=== PATIENT | female | born 1950 | race Caucasian/White ===

== ENCOUNTER → 2016-11-16 | Outpatient (CLI) | payer BC, OTHER ==
[~2016-11-16] MED LIST: RISE150T PO; ROSU5TAB PO; ZYRUNK PO
--- NOTE | 2016-11-16 16:28 | DIAGNOSTIC IMAGING REPORT ---
CHEST 2 VIEWS ROUTINE CLINICAL HISTORY: Cough. COMPARISON STUDY: Chest radiograph August 03, 2010. FINDINGS: Paraspinal surgical clips are again noted. There is no pneumothorax or pleural effusion. Linear left basilar opacity is suggestive of atelectasis. There is no evidence of pulmonary edema. Cardiomediastinal silhouette is normal. The appearance of the chest is unchanged. IMPRESSION: No acute cardiopulmonary findings. Electronically signed by: Marquis Santiago M.D. 11/16/2016 4:26 PM Dictated Date/Time: 11/16/2016 4:25 PM
== END | disposition home or self-care (01) ==
LOC: C.RAD 15:57
PROVIDERS: ATTEND Family Medicine
DX: R09.89 Other specified symptoms and signs involving the circulatory and respiratory systems (principal); R05 Cough

== ENCOUNTER → 2016-12-09 | Outpatient (CLI) | payer BC, OTHER | END | disposition home or self-care (01) | LOC: C.PAPS 14:48 | PROVIDERS: ATTEND Obstetrics & Gynecology | DX: Z01.419 Encounter for gynecological examination (general) (routine) without abnormal findings (principal) ==

== ENCOUNTER → 2016-12-09 | Outpatient (CLI) | payer BC, OTHER ==
[2016-12-09 14:33] LABS: CHOLESTEROL/HDL RATIO 3.7
== END | disposition home or self-care (01) ==
LOC: C.LAB 10:39
DX: E55.9 Vitamin D deficiency, unspecified (principal); E78.5 Hyperlipidemia, unspecified

== ENCOUNTER → 2016-12-24 | Outpatient (CLI) | payer BC, OTHER ==
--- NOTE | 2016-12-24 17:14 | MAMMOGRAPHY REPORT ---
BILATERAL DIGITAL SCREENING MAMMOGRAM WITH CAD: 12/24/2016 TECHNIQUE: Current study was also evaluated with a Computer Aided Detection (CAD) system. Bilateral CC and MLO views were obtained. COMPARISON: Comparison is made to exams dated: 12/18/2015 mammogram, 12/18/2015 ultrasound, 12/05/2015 mammogram, 11/28/2014 mammogram, 11/25/2013 mammogram, and 11/24/2012 mammogram - [facility] nter. BREAST COMPOSITION: The tissue of both breasts is heterogeneously dense, which may obscure small mas ses. FINDINGS: No suspicious masses, calcifications, or areas of architectural distortion are noted in ei ther breast. There has been no significant interval change compared to prior exams. Scattered bilate ral benign-appearing calcifications are not significantly changed. Round benign-appearing mass in th e right 12:00 breast is again noted, and was shown to represent a benign cyst on the prior 2015 ultra sound exam. IMPRESSION: ACR BI-RADS CATEGORY 2: BENIGN There is no mammographic evidence of malignancy. A 1 year screening mammogram is recommended. The pa tient will receive written notification of the results. Approximately 10% of breast cancers are not detected with mammography. A negative mammographic report should not delay biopsy if a clinically suggestive mass is present. Fely Alvarez M.D. /:12/24/2016 15:27:29 [employer] Operator: Magdalena LY(Jasmin)(M), [facility] letter sent: Normal 1/2 BI-RADS Code: ACR BI-RADS Category 2: Benign
== END | disposition home or self-care (01) ==
LOC: C.MAMM 11:16
PROVIDERS: ATTEND Obstetrics & Gynecology
DX: Z12.31 Encounter for screening mammogram for malignant neoplasm of breast (principal); R92.8 Other abnormal and inconclusive findings on diagnostic imaging of breast

== ENCOUNTER → 2017-01-19 | Outpatient (CLI) | payer BC, OTHER | END | disposition home or self-care (01) | LOC: C.MAMM 08:55 | DX: M85.851 Other specified disorders of bone density and structure, right thigh (principal); M85.852 Other specified disorders of bone density and structure, left thigh ==

== ENCOUNTER → 2017-04-08 | Outpatient (CLI) | payer BC, OTHER | END | disposition home or self-care (01) | LOC: C.LABSPEC 15:55 | PROVIDERS: ATTEND Obstetrics & Gynecology | DX: L29.8 Other pruritus (principal) ==

== ENCOUNTER → 2017-04-27 | Outpatient (CLI) | payer BC, OTHER ==
--- NOTE | 2017-04-27 13:09 | DIAGNOSTIC IMAGING REPORT ---
ULTRASOUND KIDNEYS AND BLADDER CLINICAL HISTORY: Right flank pain. COMPARISON STUDY: KUB dated 04/10/2010. TECHNIQUE: Real-time, grayscale, and color flow sonography of the kidneys and bladder is performed. Images are reviewed in the transverse and longitudinal planes. FINDINGS: Kidneys: The kidneys are normal in size and echotexture. The right kidney measures 10.2 x 4.6 x 4.5 cm and the left kidney measures 12.0 x 5.0 x 4.7 cm. There is no hydronephrosis. No shadowing renal calculi are identified. There is no sonographic evidence of contour deforming renal mass lesion. No perinephric fluid is identified. Bladder: The bladder is largely decompressed and grossly normal in appearance. Ureteral jets were not seen. IMPRESSION: 1. The kidneys are normal in size and without hydronephrosis. 2. The largely decompressed bladder is grossly unremarkable. Electronically signed by: Mike Rosario M.D. 04/27/2017 1:07 PM Dictated Date/Time: 04/27/2017 1:05 PM
[2017-04-27 17:36] LABS: BASO % 0.2 %; BASO ABS # 0.01 K/uL (0-0.2); COMPLETE YES; EOS % 4.4 %; HEMATOCRIT 40.2 % (37-47); IG% 0.2 %; LYMPH % 29.6 %; LYMPH ABS # 1.55 K/uL (1.2-3.4); MEAN CELL VOLUME 91.2 fL (80-100); MEAN CORPUSCULAR HEMOGLOBIN 28.8 pg (25-34); MEAN CORPUSCULAR HGB CONC 31.6 g/dl (32-36); MEAN PLATELET VOLUME 10.4 fL (7.4-10.4); MONO % 6.5 %; NEUT % 59.1 %; PLATELET COUNT 218 K/uL (130-400); RED BLOOD COUNT 4.41 M/uL (4.2-5.4); WHITE BLOOD COUNT 5.24 K/uL (4.8-10.8)
[2017-04-27 17:46] LABS: BLOOD UREA NITROGEN 17 mg/dl (7-18); CALCIUM 9.4 mg/dl (8.5-10.1); CARBON DIOXIDE 29 mmol/L (21-32); CHLORIDE 108 mmol/L (98-107); CREATININE 0.73 mg/dl (0.60-1.20); GLUCOSE 108 mg/dl (70-99); POTASSIUM 4.2 mmol/L (3.5-5.1); SODIUM 141 mmol/L (136-145)
[2017-04-27 17:52] LABS: URINE APPEARANCE CLEAR (CLEAR); URINE BILIRUBIN NEG (NEG); URINE COLOR YELLOW; URINE NITRITE NEG (NEG); URINE PH 6.5 (4.5-7.5); URINE SPECIFIC GRAVITY 1.022 (1.000-1.030); UROBILINOGEN NEG (NEG)
[2017-04-27 17:56] LABS: REVIEW REQ? NO
[2017-04-27 17:57] LABS: MANUAL MICROSCOPIC REQUIRED? NO
== END | disposition home or self-care (01) ==
LOC: C.ULTRBC 12:13
DX: R10.9 Unspecified abdominal pain (principal); Z87.442 Personal history of urinary calculi

== ENCOUNTER → 2017-06-04 | Outpatient (CLI) | payer BC, OTHER ==
[2017-06-04 09:48] LABS: CHOLESTEROL/HDL RATIO 2.6
[2017-06-04 09:57] LABS: ESTIMATED AVERAGE GLUCOSE 117 mg/dl; HA1C FLAG Normal (Normal)
== END | disposition home or self-care (01) ==
LOC: C.LAB 07:16
DX: E78.5 Hyperlipidemia, unspecified (principal)

== ENCOUNTER 2019-12-27 14:53 | Inpatient (IN) ==
[2019-12-27] MEDS ORDERED: SODIUM CHLORIDE 0.9% 1000ML 1,000 ML IV ONE (15:31)
[2019-12-27] MEDS ORDERED: ONDANSETRON INJ 2 MG/ML 2 ML VIAL IV STA ×2 (15:31→16:45)
[2019-12-27] MEDS ORDERED: HYDROmorphone INJ 0.5 MG/0.5 ML SYR IV STA ×2 (15:31→17:21)
[2019-12-27 15:42] LABS: Basophils # (auto) 0.02 K/uL (0-0.2); Basophils % (auto) 0.4 %; Eosinophils # (auto) 0.17 K/uL (0-0.5); Hematocrit (blood only) 38.3 % (37-47); Hemoglobin 12.5 g/dL (12.0-16.0); Immature Granulocytes # (auto) 0.01 K/uL (0.00-0.02); Immature Granulocytes % (auto) 0.2 %; Lymphocytes # (auto) 1.79 K/uL (1.2-3.4); Lymphocytes % (auto) 31.4 %; Mean Corpuscular Hgb Conc 32.6 g/dL (32-36); Mean Corpuscular Volume 91.8 fL (80-100); Mean Platelet Volume 10.1 fL (7.4-10.4); Monocytes # (auto) 0.44 K/uL (0.11-0.59); Monocytes % (auto) 7.7 %; Neutrophils # (auto) 3.27 K/uL (1.4-6.5); Neutrophils % (auto) 57.3 %; Platelet Count 223 K/uL (130-400); RDW Coefficient of Variation 13.8 % (11.5-14.5); RDW Standard Deviation 45.9 fL (36.4-46.3); Red Blood Count 4.17 M/uL (4.2-5.4)
[2019-12-27 16:00] LABS: Albumin Level 3.8 gm/dl (3.4-5.0); BUN Creatinine Ratio 17.5 (10-20); Bilirubin,Total 0.8 mg/dl (0.2-1); Calcium 9.1 mg/dl (8.5-10.1); Creatinine Clr Calc Pharmacy 41.9 ml/min; Est GFR (African American) 52.6; Est GFR (Non-African American) 45.4; Globulin 3.9 gm/dl (2.5-4.0); Potassium 3.8 mmol/L (3.5-5.1); Total Protein 7.7 gm/dl (6.4-8.2)
--- NOTE | 2019-12-27 16:44 | Ultrasound Report ---
US renal/blad retro comp HISTORY: 69 years-old Female L distal ureteral calculus left ureteral calculus COMPARISON: CT abdomen and pelvis 12/26/2019 TECHNIQUE: Multiple real-time sonographic images of the kidneys and urinary bladder were obtained ass essing grayscale appearance and color flow FINDINGS: The right kidney measures 10.8 x 4.3 x 3.6 cm. Nonobstructing calculi of the inferior pole right kidn ey redemonstrated measuring up to approximately 4 mm. No right-sided hydronephrosis. Moderate left-sided hydroureteronephrosis redemonstrated. The previously noted nonobstructing calculu s of the inferior pole left kidney is not definitively seen. The left kidney measures 12.3 x 6.1 x 5. 1 cm. Right ureteral jet is noted. Left ureteral jet is not identified suggestive of ongoing obstruction. IMPRESSION: 1. Persistent moderate left-sided hydroureteronephrosis with absence of the left ureteral jet suggest s ongoing obstruction. 2. Bilateral nephrolithiasis is better appreciated on comparison CT. ACT 112: Negative or not required by law. The above report was generated using voice recognition software. It may contain grammatical, syntax o r spelling errors. Electronically signed by: Edson Pete M.D. 12/27/2019 4:43 PM
[2019-12-27] MEDS ORDERED: MoRPHine SULFATE 4 MG/ML 1 ML CARP\\VIAL IV STA (16:45)
--- NOTE | 2019-12-27 16:54 | XRay Report ---
KUB HISTORY: Follow up study in a patient with history of renal calculi L distal ureteral calculus COMPARISON: Renal ultrasound of same day, CT abdomen and pelvis 12/26/2019 FINDINGS: The bowel gas pattern is non-obstructive. Mild to moderate fecal retention. There is no org anomegaly. The renal shadows are obscured by bowel gas. The previously noted bilateral nephrolithias is are not definitively seen. 5 mm radiodensity of the left hemipelvis is noted with multiple additio nal probable phleboliths. No pneumoperitoneum or pneumatosis. No fracture. IMPRESSION: 1. 5 mm radiodensity of the left hemipelvis may correlate with the previously described distal ureter al calculus and is suboptimally evaluated secondary to overlying bowel gas. 2. Multiple pelvic basin calcifications suggestive of probable phleboliths. ACT 112: Negative or not required by law. The above report was generated using voice recognition software. It may contain grammatical, syntax o r spelling errors. Electronically signed by: Edson Pete M.D. 12/27/2019 4:53 PM
--- NOTE | 2019-12-27 17:10 | Emergency Department Note ---
History of Present Illness General Chief complaint: Kidney Stone Stated complaint: KIDNEY STONE,HERE LAST NIGHT,CAN'T URINATE Time Seen by Provider: 12/27/19 15:26 History of Present Illness Maximum Pain Intensity: 10 69-year-old female who presents to the emergency department with complaint of uncontrollable left flank pain. The patient was here yesterday and diagnosed with a 5 mm left UVJ stone. The patient reports that she had decent pain control when she got home, but awoke this morning with pain. She tried to take her [place] tablets without any relief, and also had some vomiting. She has also been unable to remain hydrated this morning. She reports nausea and vomiting, rating her discomfort a 10 out of 10. Home Medications Home Medications Medication Instructions Recorded Confirmed Type rosuvastatin [Crestor] 20 mg PO QPM 11/26/18 12/27/19 History cholecalciferol (vitamin D3) 25 mcg PO DAILY 12/26/19 12/27/19 History hydrocodone-acetaminophen [[place]] 1 tab PO Q6H PRN #10 tab 12/27/19 12/27/19 Rx ondansetron HCl [Zofran] 4 mg PO Q8H PRN #10 tab 12/27/19 12/27/19 Rx tamsulosin [Flomax] 0.4 mg PO DAILY #10 cap 12/27/19 12/27/19 Rx Allergies Allergy/AdvReac Type Severity Reaction Status Date / Time Sulfa (Sulfonamide Allergy Hives Unverified 12/27/19 16:15 Antibiotics) Past Med/Surg History Medical History History of kidney stones Hyperlipidemia Seasonal allergies Spasmodic dysphonia REGULAR INJECTIONS FOR, LAST INJECTION: SEPTEMBER 2018 Surgical History History of appendectomy History of arthroscopy of left knee History of bunionectomy LEFT History of colonoscopy History of tumor IN BACK/BENIGN History of wisdom tooth extraction Social History Preferred Language: Polish Communication Ability: Effective Administrative Law Judge Required: No Beliefs That Will Affect Care: None Current Living Situation: Spouse Other Information That Helps Us Care for You: No Feels Safe at Home: Yes Safety Concerns: Feels Safe At This Time Smoking Status: Never smoker Tobacco Type: cigarettes ; Hx Alcohol Use: Yes Alcohol type: wine and hard liquor Hx Substance Use: No Review of Systems 10 system review was performed and was negative except for pertinent positives and negatives as indicated in history of present illness Physical Exam Vital Signs Vital Signs - 24 hr 12/27/19 14:54 12/27/19 15:40 12/27/19 15:57 Temperature 36.7 C Temperature Source Oral Pulse Rate 96 H 69 79 Pulse Rate from SpO2 Sensor 74 79 Respiratory Rate 18 12 18 Respiratory Effort / Characteristics Non-Labored Respiratory Depth Normal Blood Pressure 182/105 H 139/76 Blood Pressure Mean 130 110 Pulse Oximetry 95 96 97 Oxygen Delivery Method Room Air Room Air Room Air Oxygen Flow Rate Sepsis Recent Fever Within 48 Hours No Sepsis New/Unexplained Change in Mental Status No Sepsis Action Taken by Nursing No Action Required 12/27/19 16:00 12/27/19 16:40 12/27/19 16:47 Temperature Temperature Source Pulse Rate 79 87 84 Pulse Rate from SpO2 Sensor 79 87 88 Respiratory Rate 12 23 14 Respiratory Effort / Characteristics Respiratory Depth Blood Pressure 154/89 H Blood Pressure Mean 113 Pulse Oximetry 96 95 94 Oxygen Delivery Method Room Air Room Air Room Air Oxygen Flow Rate Sepsis Recent Fever Within 48 Hours Sepsis New/Unexplained Change in Mental Status Sepsis Action Taken by Nursing 12/27/19 17:00 12/27/19 17:25 12/27/19 17:27 Temperature Temperature Source Pulse Rate 84 84 93 H Pulse Rate from SpO2 Sensor 83 85 92 H Respiratory Rate 20 22 17 Respiratory Effort / Characteristics Respiratory Depth Blood Pressure 173/88 H 164/97 H Blood Pressure Mean 117 112 Pulse Oximetry 93 94 89 L Oxygen Delivery Method Room Air Room Air Room Air Oxygen Flow Rate Sepsis Recent Fever Within 48 Hours Sepsis New/Unexplained Change in Mental Status Sepsis Action Taken by Nursing 12/27/19 17:30 Temperature Temperature Source Pulse Rate 82 Pulse Rate from SpO2 Sensor 84 Respiratory Rate 20 Respiratory Effort / Characteristics Respiratory Depth Blood Pressure 174/99 H Blood Pressure Mean 112 Pulse Oximetry 82 L Oxygen Delivery Method Nasal Cannula Oxygen Flow Rate 2 Sepsis Recent Fever Within 48 Hours Sepsis New/Unexplained Change in Mental Status Sepsis Action Taken by Nursing CONSTITUTIONAL: Healthy and well nourished. Patient appears in severe discomfort and is vomiting. HEENT: Normocephalic, atraumatic. No subconjunctival hemorrhage or scleral icterus. RESPIRATORY: Clear to auscultation bilaterally with no wheezing, crackles, rhonchi or stridor. CARDIOVASCULAR: Regular rate and rhythm with no murmurs, rubs or gallops. GASTROINTESTINAL: Bowel sounds present in all quadrants. Abdomen is soft and nontender to palpation without rigidity, guarding or rebound. Negative CVA tenderness. MUSCULOSKELETAL: Full range of motion of all joints without discomfort. INTEGUMENTARY: No rash or other significant dermatologic conditions noted. HEMATOLOGIC: No ecchymosis or petechiae. PSYCHIATRIC: Positive affect. NEUROLOGIC: No focal neurologic deficits noted. Course Course Patient history and physical exam were performed. Nurse's notes were reviewed. Vital signs were reviewed, showing an elevated blood pressure 182/105. The patient is currently afebrile and not tachycardic. IV access was immediately established, and labs were drawn. The patient was hydrated with a liter normal saline, and was initially administered IV Dilaudid and Zofran. Labs were reviewed to show no leukocytosis, left shift or bandemia. Creatinine has elevated to 1.23, otherwise remaining laboratory studies were normal. Urinalysis shows 2+ hematuria without convincing evidence for infection. The patient did require additional IV morphine and Zofran because of no change in her pain or nausea. Renal ultrasound shows a persistent moderate left-sided hydroureteronephrosis with absence of the left ureteral jet, suggesting ureteral obstruction. A KUB x-ray shows a 5 mm radiodensity in the left hemipelvis. No other obstructive findings or free air noted. After the patient returned from imaging studies, she still continued to complain of persistent pain and nausea, and was therefore administered an additional dose of IV Dilaudid. The case was further discussed with Dr. Martinez, ED attending physician, who independently evaluated the patient and recommended consulting the hospitalist service. The case was further discussed with Dr. Schneider, [facility] hospitalist for further management. Please see his dictation for further treatment and final disposition. Administered Medications Hydromorphone HCl (Dilaudid) 0.5 mg IV Q4H PRN PRN Reason: Pain Stop: 01/10/20 19:25 Last Admin: 12/28/19 07:34 Dose: 0.5 mg Documented by: [id number] Promethazine HCl 12.5 mg/ (Sodium Chloride) 50.5 mls @ 202 mls/hr IV Q6H PRN PRN Reason: Nausea And Vomiting Stop: 01/26/20 19:25 Last Infusion: 12/27/19 21:31 Dose: 0 mls/hr Documented by: [id number] Admin: 12/27/19 20:33 Dose: 202 mls/hr Documented by: [id number] Rosuvastatin Calcium (Crestor) 20 mg PO QPM CANDIDO Stop: 01/26/20 20:59 Last Admin: 12/27/19 21:33 Dose: Not Given Documented by: [id number] Tamsulosin HCl (Flomax) 0.4 mg PO HS CANDIDO Stop: 01/26/20 20:59 Last Admin: 12/27/19 21:33 Dose: Not Given Documented by: [id number] Vitamin D (Vitamin D3) 1,000 units PO DAILY CANDIDO Stop: 01/27/20 08:59 Last Admin: 12/28/19 07:35 Dose: 1,000 units Documented by: [id number] Discontinued Medications Hydromorphone HCl (Dilaudid) 0.5 mg IV NOW STA Stop: 12/27/19 15:32 Last Admin: 12/27/19 15:40 Dose: 0.5 mg Documented by: [id number] Hydromorphone HCl (Dilaudid) 0.5 mg IV NOW STA Stop: 12/27/19 17:22 Last Admin: 12/27/19 17:31 Dose: 0.5 mg Documented by: [id number] Sodium Chloride (Nss 1000ml) 1,000 mls @ 999 mls/hr IV .Q1H1M ONE Stop: 12/27/19 16:31 Last Infusion: 12/27/19 16:41 Dose: 0 mls/hr Documented by: [id number] Admin: 12/27/19 15:40 Dose: 999 mls/hr Documented by: [id number] Lactated Ringer's (Lr) 1,000 mls @ 999 mls/hr IV .Q1H1M ONE Stop: 12/27/19 19:01 Last Infusion: 12/27/19 19:23 Dose: 0 mls/hr Documented by: [id number] Admin: 12/27/19 18:13 Dose: 999 mls/hr Documented by: [id number] Acetaminophen (Ofirmev) 1,000 mg in 100 mls @ 400 mls/hr IV NOW STA Stop: 12/27/19 18:19 Last Infusion: 12/27/19 18:31 Dose: 0 mls/hr Documented by: [id number] Admin: 12/27/19 18:16 Dose: 400 mls/hr Documented by: [id number] Lactated Ringer's (Lr) 1,000 mls @ 999 mls/hr IV .Q1H1M ONE Stop: 12/27/19 20:28 Last Infusion: 12/27/19 21:31 Dose: 0 mls/hr Documented by: [id number] Admin: 12/27/19 20:04 Dose: 999 mls/hr Documented by: [id number] Lactated Ringer's (Lr) 1,000 mls @ 150 mls/hr IV .Q6H40M CANDIDO Stop: 12/28/19 09:47 Last Infusion: 12/28/19 10:36 Dose: 0 mls/hr Documented by: [id number] Infusion: 12/28/19 06:10 Dose: 150 mls/hr Documented by: [id number] Admin: 12/28/19 04:05 Dose: 150 mls/hr Documented by: [id number] Infusion: 12/28/19 04:05 Dose: 150 mls/hr Documented by: [id number] Admin: 12/27/19 21:32 Dose: 150 mls/hr Documented by: [id number] Ketorolac Tromethamine (Toradol) 15 mg IV NOW STA Stop: 12/27/19 18:06 Last Admin: 12/27/19 18:13 Dose: 15 mg Documented by: [id number] Morphine Sulfate (Morphine Sulfate) 4 mg IV NOW STA Stop: 12/27/19 16:46 Last Admin: 12/27/19 16:50 Dose: 4 mg Documented by: [id number] Ondansetron HCl (Zofran) 4 mg IV NOW STA Stop: 12/27/19 15:32 Last Admin: 12/27/19 15:41 Dose: 4 mg Documented by: [id number] Ondansetron HCl (Zofran) 4 mg IV NOW STA Stop: 12/27/19 16:46 Last Admin: 12/27/19 16:51 Dose: 4 mg Documented by: [id number] Medical Decision Making Medical Records Attestation: I reviewed the patient's medical records. Home Medications Current Medication List: was personally reviewed by me Laboratory Data Attestation: I reviewed the patient's lab results. Result diagrams: 12/28/19 06:30 12/28/19 06:30 Lab Results 12/27/19 12/27/19 12/27/19 Range/Units 15:10 15:10 17:28 WBC 5.70 (4.8-10.8) K/uL RBC 4.17 L (4.2-5.4) M/uL Hgb 12.5 (12.0-16.0) g/dL Hct 38.3 (37-47) % MCV 91.8 (80-100) fL MCH 30.0 (25-34) pg MCHC 32.6 (32-36) g/dL RDW Std Deviation 45.9 (36.4-46.3) fL RDW Coeff of [place] 13.8 (11.5-14.5) % Plt Count 223 (130-400) K/uL MPV 10.1 (7.4-10.4) fL Immature Gran % (Auto) 0.2 % Neut % (Auto) 57.3 % Lymph % (Auto) 31.4 % Bacon % (Auto) 7.7 % Eos % (Auto) 3.0 % Baso % (Auto) 0.4 % Immature Gran # (Auto) 0.01 (0.00-0.02) K/uL Neut # (Auto) 3.27 (1.4-6.5) K/uL Lymph # (Auto) 1.79 (1.2-3.4) K/uL Bacon # (Auto) 0.44 (0.11-0.59) K/uL Eos # (Auto) 0.17 (0-0.5) K/uL Baso # (Auto) 0.02 (0-0.2) K/uL Sodium 140 (136-145) mmol/L Potassium 3.8 (3.5-5.1) mmol/L Chloride 107 (98-107) mmol/L Carbon Dioxide 25 (21-32) mmol/L Anion Gap 8.0 (3-11) BUN 22 H (7-18) mg/dl Creatinine 1.23 H D (0.6-1.2) mg/dl Est Cr Clr Drug Dosing 41.9 ml/min Est GFR ( Amer) 52.6 Est GFR (Non-Af Amer) 45.4 BUN/Creatinine Ratio 17.5 (10-20) Glucose 112 H (70-99) mg/dl Calcium 9.1 (8.5-10.1) mg/dl Total Bilirubin 0.8 (0.2-1) mg/dl AST 21 (15-37) U/L ALT 23 (12-78) U/L Alkaline Phosphatase 71 (45-117) U/L Total Protein 7.7 (6.4-8.2) gm/dl Albumin 3.8 (3.4-5.0) gm/dl Globulin 3.9 (2.5-4.0) gm/dl Albumin/Globulin Ratio 1.0 (0.9-2) Specimen Hemolysis Urine Color Yellow Urine Appearance Clear (Clear) Urine pH 5.5 (4.5-7.5) Ur Specific [place] 1.014 (1.000-1.030) Urine Protein Negative (Negative) Urine Glucose (UA) Negative (Negative) Urine Ketones Negative (Negative) Urine Blood 2+ H (Negative) Urine Nitrite Negative (Negative) Urine Bilirubin Negative (Negative) Urine Urobilinogen Negative (Negative) Ur Leukocyte Esterase Trace H (Negative) Urine WBC (Auto) 1-5 (0-5) /hpf Urine RBC (Auto) 5-10 H (0-4) /hpf U Hyaline Cast (Auto) 1-5 (0-5) /lpf U Epithel Cells (Auto) 10-20 H (0-5) /lpf Urine Bacteria (Auto) Negative (Negative) Imaging Data Attestation: I personally reviewed and interpreted this imaging study as follows: My Impression: Renal ultrasound shows persistent left-sided hydroureteronephrosis, with absence of the left ureteral jet, suggestive of persistent ureteral obstruction. My interpretation of a KUB x-ray does show a 5 mm density within the left hemipelvis, likely the patient's current stone. No additional obstructive findings or free air appreciated. Radiologist's Impression: US renal/blad retro comp HISTORY: 69 years-old Female L distal ureteral calculus left ureteral calculus COMPARISON: CT abdomen and pelvis 12/26/2019 TECHNIQUE: Multiple real-time sonographic images of the kidneys and urinary bladder were obtained assessing grayscale appearance and color flow FINDINGS: The right kidney measures 10.8 x 4.3 x 3.6 cm. Nonobstructing calculi of the inferior pole right kidney redemonstrated measuring up to approximately 4 mm. No right-sided hydronephrosis. Moderate left-sided hydroureteronephrosis redemonstrated. The previously noted nonobstructing calculus of the inferior pole left kidney is not definitively seen. The left kidney measures 12.3 x 6.1 x 5.1 cm. Right ureteral jet is noted. Left ureteral jet is not identified suggestive of ongoing obstruction. IMPRESSION: 1. Persistent moderate left-sided hydroureteronephrosis with absence of the left ureteral jet suggests ongoing obstruction. 2. Bilateral nephrolithiasis is better appreciated on comparison CT. KUB HISTORY: Follow up study in a patient with history of renal calculi L distal ureteral calculus COMPARISON: Renal ultrasound of same day, CT abdomen and pelvis 12/26/2019 FINDINGS: The bowel gas pattern is non-obstructive. Mild to moderate fecal retention. There is no organomegaly. The renal shadows are obscured by bowel gas. The previously noted bilateral nephrolithiasis are not definitively seen. 5 mm radiodensity of the left hemipelvis is noted with multiple additional probable phleboliths. No pneumoperitoneum or pneumatosis. No fracture. IMPRESSION: 1. 5 mm radiodensity of the left hemipelvis may correlate with the previously described distal ureteral calculus and is suboptimally evaluated secondary to overlying bowel gas. 2. Multiple pelvic basin calcifications suggestive of probable phleboliths. Blood Pressure Blood Pressure Findings: Elevated blood pressure Blood Pressure Disposition: further management by hospitalist KARL Thomas Patient presents to the emergency department for trouble pain, nausea and vomiting from a distal left ureteral calculus. The patient was seen in the emergency department yesterday with CT imaging confirming diagnosis. The patient returns today with repeat labs showing no evidence for acute renal injury. The patient has intractable pain and nausea from her condition, therefore I feel that observation is warranted, along with urology consultation. Her KUB x-ray does not show any evidence for bowel obstruction or free air. Laboratory studies are not consistent with UTI, acute kidney injury, pancreatitis, cholecystitis or hepatitis. Attending Attestation: Yahir Martinez MD independently saw and evaluated this patient and agree with history and physical is otherwise documented by the physician residential assistant. See their note for full details. Patient in bed resting. Patient states some improvement in symptoms but still with pain. Hx of stones. No L flank tenderness or abdominal tenderness on exam. Patient seems and reports some drowsiness from the medications. Failing outpatient treatment further inpatient care due to this. Impression & Plan Intractable abdominal pain, Calculus of distal left ureter Discharge Plan Visit Data *Final* Discharge Date/Time: 12/27/19 18:47 Chief Complaint: Kidney Stone Stated Complaint: KIDNEY STONE,HERE LAST NIGHT,CAN'T URINATE ED Provider: Camron Martinez ED Midlevel Provider: Vidal Sweeney Discharge Problem: Intractable abdominal pain, Calculus of distal left ureter Patient Disposition: Admitted As Inpatient Discharge Instructions Interventions: ED Discharge Assessment Last Done: 12/27/19 18:47
[2019-12-27] MEDS ORDERED: ALUMINUM/MAGNESIUM SUSP 30 ML UDC PO PRN (17:54)
[2019-12-27] MEDS ORDERED: POLYETHYLENE (MIRALAX) 17 GM PACK PO PRN (17:54)
[2019-12-27] MEDS ORDERED: MAGNESIUM HYDROXIDE SUSP 30 ML UDC PO PRN (17:54)
[2019-12-27] MEDS ORDERED: ACETAMINOPHEN 325 MG TAB PO PRN (17:54)
[2019-12-27] MEDS ORDERED: ONDANSETRON INJ 2 MG/ML 2 ML VIAL IV PRN (17:54)
[2019-12-27] MEDS ORDERED: LACTATED RINGER'S 1,000 ML IV ONE ×2 (18:01→19:28)
--- NOTE | 2019-12-27 18:01 | History & Physical Report ---
Date of Service December 27, 2019 Assessment & Plan (1) Ureterolithiasis: Distal 5mm stone, obstructing with hydronephrosis and increasing creatinine NSS 1L bolus given in ER, Give addition LR 2L bolus then 150 ml/hr One dose of tamsulosin given in ER yesterday. Continue dose tonight. Non septic appearing. UA pending. WBC normal. Will defer antibiotics currently. If she spikes a temperature overnight start IV ceftriaxone Pain management with acetaminophen, Toradol 15mg IV now, Dilaudid PRN overnight NPO after midnight, potential need for cystoscopy with stent placement if unable to pass stone Consult urology in AM (2) Acute left flank pain: secondary to above (3) Hydronephrosis: as above (4) DVT prophylaxis: Hold off chemical prophylaxis pending cystoscopy decision SCDs Admission and Anticipated Discharge Date Admission Date: 12/27/2019 History of Present Illness Chief Complaint: Left flank pain Primary Care Provider: Parrish Gregg Jr, DO Angely Pena is a 69 year old female who presents to the ER with recurrent left flank and left lower quadrant abdominal pain. Her symptoms started yesterday at around 8pm. Severe 10/10 pain initially and not able to get comfortable. She came to the ER and subsequent CT confirmed a distal 5mm stone. She was treated with pain relief, tamsulosin and IV fluids in the ER and discharged home with. She does note chills since discharge but no objective fevers, dysuria. The pain has not resolved since discharge despite using the [place] and subsequently became more painful this morning so she decided to return to the ER. On return to the ER her pain was 10/10 severity. Currently after 2L IV bolus, 1mg Dilaudid, 4mg Morphine, 15mg Toradol and 1g Acetaminophen her pain is 6/10. Aching pain on left flank and LLQ abdomen, unable to get comfortable, no radiation. KUB XR suggestive of 5mm stone present in distal left ureteral but overlying gas therefore suboptimal film. Renal US showed persistant left-sided hydroureteronephrosis. She has a known history of mainly calcium oxalate stones. Allergies Allergy/AdvReac Type Severity Reaction Status Date / Time Sulfa (Sulfonamide Allergy Hives Unverified 12/27/19 16:15 Antibiotics) Home Medications Home Medications Medication Instructions Recorded Confirmed Type rosuvastatin [Crestor] 20 mg PO QPM 11/26/18 12/27/19 History cholecalciferol (vitamin D3) 25 mcg PO DAILY 12/26/19 12/27/19 History hydrocodone-acetaminophen [[place]] 1 tab PO Q6H PRN #10 tab 12/27/19 12/27/19 Rx ondansetron HCl [Zofran] 4 mg PO Q8H PRN #10 tab 12/27/19 12/27/19 Rx tamsulosin [Flomax] 0.4 mg PO DAILY #10 cap 12/27/19 12/27/19 Rx Past Med/Surg History Medical History History of kidney stones Hyperlipidemia Seasonal allergies Spasmodic dysphonia REGULAR INJECTIONS FOR, LAST INJECTION: SEPTEMBER 2018 Surgical History History of appendectomy History of arthroscopy of left knee History of bunionectomy LEFT History of colonoscopy History of tumor IN BACK/BENIGN History of wisdom tooth extraction Social History Preferred Language: Jordanian Communication Ability: Effective Churn Driller Required: No Beliefs That Will Affect Care: None Current Living Situation: Spouse Other Information That Helps Us Care for You: No Feels Safe at Home: Yes Safety Concerns: Feels Safe At This Time Smoking Status: Never smoker Tobacco Type: cigarettes ; Hx Alcohol Use: Yes Alcohol type: wine and hard liquor Hx Substance Use: No Review of Systems Review of Systems: All systems reviewed & are unremarkable except as noted in HPI & below Physical Exam Constitutional: WD/WN, vitals as above + acute distress (left flank pain) Eyes: PERRL, conjunctivae normal, anicteric sclerae ENMT: external ear and nose normal, oropharynx normal Neck: trachea midline, no thyromegaly Respiratory: normal respiratory effort, lungs clear to auscultation Cardiovascular: RRR, no murmur, no edema Gastrointestinal (Abdomen): Inspection/Auscultation: abdomen normal to inspection and normal bowel sounds; abdomen not distended Percussion/Palpation: + abdomen tender (LLQ), + guarding and abdomen soft; abdomen not rigid Musculoskeletal: no cyanosis or clubbing, extremities motor strength 5/5 Skin: no rashes, warm and dry Neurologic: moves all extremities and awake; no focal motor deficits and not confused Motor/Sensory: no tremor and no pronator drift Psychiatric: A+Ox3, euthymic affect Genitourinary: + CVA tenderness (Left) Lymphatic: no cervical or axillary lymphadenopathy Results & Data Results & Data ([facility]) Vital Signs (Past 12 Hours) Vital Signs Temp Pulse Resp BP Pulse Ox 12/27/19 17:30 82 20 174/99 H 82 L 12/27/19 17:27 93 H 17 164/97 H 89 L 12/27/19 17:25 84 22 173/88 H 94 12/27/19 17:00 84 20 93 12/27/19 16:47 84 14 154/89 H 94 12/27/19 16:40 87 23 95 12/27/19 16:00 79 12 96 12/27/19 15:57 79 18 97 12/27/19 15:40 69 12 139/76 96 12/27/19 14:54 36.7 C 96 H 18 182/105 H 95 Diagnostic Findings US renal/blad retro comp IMPRESSION: 1. Persistent moderate left-sided hydroureteronephrosis with absence of the left ureteral jet suggests ongoing obstruction. 2. Bilateral nephrolithiasis is better appreciated on comparison CT. XR KUB IMPRESSION: 1. 5 mm radiodensity of the left hemipelvis may correlate with the previously described distal ureteral calculus and is suboptimally evaluated secondary to overlying bowel gas. 2. Multiple pelvic basin calcifications suggestive of probable phleboliths. ECG Indication: tachycardia Rate (beats per minute): 79 Rhythm: sinus with SA Findings: no acute ischemic change Comparison ECG Date: from (01/31/2013) Change: no significant change Code Status & VTE Plan Code Status Full VTE Prophylaxis Plan VTE Prophylaxis will be ordered: Yes PG Care Time/CCT Total # of Minutes Spent Total Time Spent with Patient: Total time spent is greater than 50% in coordination of care (as documented) at patient's floor/unit and/or counseling patient: Coding Level of Care Code 78675 Initial Inpt Care Lvl 2 Diagnoses Ureterolithiasis N20.1 Acute left flank pain R10.9 Hydronephrosis N13.30 DVT prophylaxis Z29.9
[2019-12-27] MEDS ORDERED: ACETAMINOPHEN 1,000 MG/100 ML VIAL IV STA (18:05)
[2019-12-27] MEDS ORDERED: KETOROLAC TROMETHAMINE 15 MG/ML VIAL IV STA (18:05)
[2019-12-27 18:14] LABS: Appearance Urine Clear (Clear); Bacteria Urine Automated Negative (Negative); Bilirubin Urine Negative (Negative); Blood Urine 2+ (Negative); Color Urine Yellow; Glucose Urine UA Negative (Negative); Ketones Urine Negative (Negative); Leukocyte Esterase Urine Trace (Negative); Nitrite Urine Negative (Negative); Protein Urine Negative (Negative); Specific Gravity Urine 1.014 (1.000-1.030); Urobilinogen Urine Negative (Negative); pH Urine 5.5 (4.5-7.5)
[2019-12-27] MEDS ORDERED: HYDROmorphone INJ 0.5 MG/0.5 ML SYR IV PRN (19:26)
[2019-12-27] MEDS ORDERED: PROMETHAZINE HCL 12.5 MG in SODIUM CHLORIDE 0.9% 50 ML IV PRN (19:26)
[2019-12-27] MEDS ORDERED: HYDROmorphone INJ 1 MG/ML SYRINGE IV PRN (19:27)
[2019-12-27] MEDS: LACTATED RINGER'S 1,000 ML IV SCH (21:32)
[2019-12-27] MEDS: TAMSULOSIN HCL 0.4 MG CAP PO SCH (21:33)
[2019-12-27] MEDS: ROSUVASTATIN CALCIUM 20 MG TAB PO SCH (21:33)
[2019-12-27] MEDS ORDERED: ACETAMINOPHEN 1,000 MG/100 ML VIAL IV PRN (21:49)
[2019-12-28] MEDS: LACTATED RINGER'S 1,000 ML IV SCH ×2 (04:05→20:47)
[2019-12-28 06:39] LABS: Basophils # (auto) 0.01 K/uL (0-0.2); Basophils % (auto) 0.2 %; Eosinophils # (auto) 0.07 K/uL (0-0.5); Eosinophils % (auto) 1.1 %; Hematocrit (blood only) 35.7 % (37-47); Hemoglobin 11.5 g/dL (12.0-16.0); Immature Granulocytes # (auto) 0.01 K/uL (0.00-0.02); Immature Granulocytes % (auto) 0.2 %; Lymphocytes # (auto) 1.28 K/uL (1.2-3.4); Lymphocytes % (auto) 20.6 %; Mean Corpuscular Hemoglobin 29.2 pg (25-34); Mean Corpuscular Hgb Conc 32.2 g/dL (32-36); Mean Corpuscular Volume 90.6 fL (80-100); Mean Platelet Volume 9.6 fL (7.4-10.4); Monocytes # (auto) 0.51 K/uL (0.11-0.59); Monocytes % (auto) 8.2 %; Neutrophils # (auto) 4.32 K/uL (1.4-6.5); Neutrophils % (auto) 69.7 %; Platelet Count 172 K/uL (130-400); RDW Coefficient of Variation 13.9 % (11.5-14.5); RDW Standard Deviation 46.2 fL (36.4-46.3); Red Blood Count 3.94 M/uL (4.2-5.4)
[2019-12-28 07:12] LABS: Creatinine Clr Calc Pharmacy 36.5 ml/min; Est GFR (African American) 44.6; Est GFR (Non-African American) 38.5; Potassium 3.7 mmol/L (3.5-5.1)
[2019-12-28] MEDS: HYDROmorphone INJ 0.5 MG/0.5 ML SYR IV PRN ×3 (07:34→18:58)
[2019-12-28] MEDS: CHOLECALCIFEROL 1,000 UNITS 25 MCG TAB PO SCH (07:35)
[2019-12-28] MEDS ORDERED: TAMSULOSIN HCL 0.4 MG CAP PO SCH (09:00)
--- NOTE | 2019-12-28 10:46 | Hospitalist Progress Note ---
Date of Service December 28, 2019 Assessment & Plan Admission and Anticipated Discharge Date Admission Date: December 27, 2019 69 yo F w/ pMHx. of prior nephrolithiasis presents with ureterolithiasis Ureterolithiasis - renal ultrasound w/ moderate left hydronephrosis w/o ureteral jet - CT abdomen/pelvis: 5 mm distal left calculus w/ bilateral nephrolithiasis - NSS 150 ml/hr - nl WBC, UA w/ 2+blood, trace LCE, RBC 5-10, 10-20 epithelial cells - asymptomatic - pain management with acetaminophen and Dilaudid PRN - Urology consulted, plan for cystoscopy tomorrow Acute left flank pain - secondary to above Hydronephrosis - as above DVT prophylaxis - Hold off chemical prophylaxis pending cystoscopy decision - SCDs Code: full Diet: regular Supervising Physician Co-Signing Physician Notes I personally examined the patient and verified all burnett points of history and exam, discussed case, and agree with decision making with Dr Rose. pain doing better with pain meds. updated on plan. her main concern is that she has injections scheduled for her dysphonia on thursday next week in [facility] - and last time she had a stent she said she was bed rest with pain meds until it came out. vitals noted nad heent nc at mmm breathing unlabored no accessory muscles good effort skin no rashes no pallor or icterus ureterolithiasis w SAKSHI - IVF, pain control, expectant management, cysto if doesn't pass by morning dysphonia - d/w pt her prior experience is not common - more than likely she'll be able to make medical center clinic appt even if stent in; if somehow situation is more symptomatic and she cannot - we'll ask manisha to try to help reschedule. otherwise as above Subjective Angely Pena is doing better this morning. She brought up that she has had kidney stones in the past 12-15 years ago and then again 2 years prior, and at this time she was able to pass the stone on her own. This morning she was not having pain with urination or blood in her urine. She has been straining her urine and did not see any stones. 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, denies shortness of breath neuro: denies headache GI: denies nausea and vomiting : denies increased frequency, urgency or pain Physical Exam Constitutional: well developed and well nourished; no acute distress Eyes: PERRL, conjunctivae normal, anicteric sclerae ENMT: external ear and nose normal, oropharynx normal Neck: normal visual inspection Respiratory: normal respiratory effort, lungs clear to auscultation no cough Cardiovascular: RRR, no murmur, no edema Gastrointestinal (Abdomen): Inspection/Auscultation: normal bowel sounds Percussion/Palpation: abdomen soft - tender to palpation on the left flank Skin: no rashes, warm and dry Psychiatric: A+Ox3, euthymic affect Results & Data Results & Data ([facility]) Vital Signs (Past 12 Hours) Vital Signs Temp Pulse Resp BP Pulse Ox 12/28/19 07:50 37.3 C 69 16 121/72 92 12/27/19 23:50 36.8 C 75 16 136/70 93 Resident Activity Tracking Resident Involvement: Resident Care Provided Care Provided: Adult Hospital Medicine
--- NOTE | 2019-12-28 13:14 | Urology Consultation ---
Date of Consultation December 28, 2019 Assessment & Plan (1) Calculus of distal left ureter: Assessment Left renal colic secondary to a distal left ureteral calculus. Since currently the patient is afebrile and pain is controlled will give her 24 hours to see if she can pass the stone on her own. If she does not pass the stone will plan on a cysto ureteroscopy laser lithotripsy stent on the left for tomorrow. Procedure risks and benefits discussed with the patient. History of Present Illness Attending Physician: Jerardo Henning DO History of Present Illness Patient is a 69-year-old white female admitted through the emergency room with left renal colic secondary to a 4-5 millimeter distal left ureteral stone. She has had a ureteroscopy laser lithotripsy and stent in the past. Currently she says her pain is controlled. She is having no fevers chills nausea or vomiting. She does not think she has passed the stone yet. Allergies Allergy/AdvReac Type Severity Reaction Status Date / Time Sulfa (Sulfonamide Allergy Hives Unverified 12/27/19 16:15 Antibiotics) Home Medications Home Medications Medication Instructions Recorded Confirmed Type rosuvastatin [Crestor] 20 mg PO QPM 11/26/18 12/27/19 History cholecalciferol (vitamin D3) 25 mcg PO DAILY 12/26/19 12/27/19 History hydrocodone-acetaminophen [[place]] 1 tab PO Q6H PRN #10 tab 12/27/19 12/27/19 Rx ondansetron HCl [Zofran] 4 mg PO Q8H PRN #10 tab 12/27/19 12/27/19 Rx tamsulosin [Flomax] 0.4 mg PO DAILY #10 cap 12/27/19 12/27/19 Rx Patient History Medical History History of kidney stones Hyperlipidemia Seasonal allergies Spasmodic dysphonia REGULAR INJECTIONS FOR, LAST INJECTION: SEPTEMBER 2018 Surgical History History of appendectomy History of arthroscopy of left knee History of bunionectomy LEFT History of colonoscopy History of tumor IN BACK/BENIGN History of wisdom tooth extraction Social History Preferred Language: Yoruba Communication Ability: Effective Diesel Technician Required: No Beliefs That Will Affect Care: None Current Living Situation: Spouse Other Information That Helps Us Care for You: No Feels Safe at Home: Yes Safety Concerns: Feels Safe At This Time Smoking Status: Never smoker Tobacco Type: cigarettes ; Hx Alcohol Use: Yes Alcohol type: wine and hard liquor Hx Substance Use: No Review of Systems Review of Systems: Review of systems reviewed from her history and physical Physical Exam Physical Exam: Constitutional Well-developed well-nourished In no acute distress, Healthy appearing Neuro/psych Alert and oriented x3 Normal mood Normal affect Normal coordination Skin Normal color Normal turgor No rashes Warm and Dry Neck Normal visual inspection Pulmonary Normal rhythm and effort No respiratory distress No audible wheezes Able to speak in complete sentences Cardiac No peripheral edema Results & Data Vital Signs (Past 12 Hours) Vital Signs Temp Pulse Resp BP Pulse Ox 12/28/19 07:50 37.3 C 69 16 121/72 92 PG Care Time/CCT Total # of Minutes Spent Total Time Spent with Patient: Total time spent is greater than 50% in coordination of care (as documented) at patient's floor/unit and/or counseling patient: Coding Level of Care Code 61273 Initial Inpt Care Lvl 2 Diagnoses Calculus of distal left ureter N20.1
--- NOTE | 2019-12-28 13:59 | XRay Report ---
XR KUB/Abdomen 1 view CLINICAL HISTORY: Nephrolithiasis COMPARISON STUDY: 12/27/2019 FINDINGS: There is moderate right colonic stool. There is a nonobstructive bowel gas pattern. The dionna al shadows are partially obscured by overlying bowel gas and fecal material. Bilateral renal calculi are suspected. There are multiple pelvic basin calcifications. One of the calcifications at 3.5 mm le ft pelvic basin calcification. It is conceivable this represents the previously described distal left ureteral calculus. IMPRESSION: 1. Nonobstructive bowel gas pattern 2. Bilateral nephrolithiasis 3. 3.5 mm left pelvic basin calcification, not present on a 2009 KUB, and therefore possibly correspo nding to the patient's recently reported distal left ureteral calculus ACT 112: Negative or not required by law. Electronically signed by: Clive Lauren M.D. 12/28/2019 1:57 PM
[2019-12-28] MEDS: cefTRIAXone SODIUM 1,000 MG in DEXTROSE 5% 50 ML IV SCH (14:21)
--- NOTE | 2019-12-28 19:43 | Billing Data ---
Date of Service December 28, 2019 Coding Level of Care Code 12230 Subseq Hosp Care Lvl 3
[2019-12-28] MEDS: TAMSULOSIN HCL 0.4 MG CAP PO SCH (20:48)
[2019-12-28] MEDS: ROSUVASTATIN CALCIUM 20 MG TAB PO SCH (20:48)
[2019-12-29] MEDS: HYDROmorphone INJ 0.5 MG/0.5 ML SYR IV PRN ×2 (06:46→18:47)
[2019-12-29 07:13] LABS: Basophils # (auto) 0.02 K/uL (0-0.2); Basophils % (auto) 0.4 %; Eosinophils # (auto) 0.31 K/uL (0-0.5); Eosinophils % (auto) 5.7 %; Hematocrit (blood only) 37.4 % (37-47); Hemoglobin 11.8 g/dL (12.0-16.0); Immature Granulocytes # (auto) 0.01 K/uL (0.00-0.02); Immature Granulocytes % (auto) 0.2 %; Lymphocytes # (auto) 1.56 K/uL (1.2-3.4); Lymphocytes % (auto) 28.9 %; Mean Corpuscular Hemoglobin 29.3 pg (25-34); Mean Corpuscular Hgb Conc 31.6 g/dL (32-36); Mean Corpuscular Volume 92.8 fL (80-100); Mean Platelet Volume 9.9 fL (7.4-10.4); Monocytes # (auto) 0.51 K/uL (0.11-0.59); Monocytes % (auto) 9.4 %; Neutrophils # (auto) 2.99 K/uL (1.4-6.5); Neutrophils % (auto) 55.4 %; Platelet Count 175 K/uL (130-400); RDW Coefficient of Variation 13.8 % (11.5-14.5); RDW Standard Deviation 47.2 fL (36.4-46.3); Red Blood Count 4.03 M/uL (4.2-5.4)
[2019-12-29 07:28] LABS: Albumin Level 2.9 gm/dl (3.4-5.0); BUN Creatinine Ratio 11.8 (10-20); Calcium 8.5 mg/dl (8.5-10.1); Creatinine Clr Calc Pharmacy 30.7 ml/min; Est GFR (African American) 36.1; Est GFR (Non-African American) 31.1; Potassium 3.8 mmol/L (3.5-5.1)
[2019-12-29 07:31] LABS: Albumin Globulin Ratio 0.8 (0.9-2); Bilirubin,Total 0.6 mg/dl (0.2-1); Globulin 3.7 gm/dl (2.5-4.0); Total Protein 6.6 gm/dl (6.4-8.2)
[2019-12-29] MEDS: LACTATED RINGER'S 1,000 ML IV SCH (08:42)
[2019-12-29] MEDS: CHOLECALCIFEROL 1,000 UNITS 25 MCG TAB PO SCH (08:42)
--- NOTE | 2019-12-29 10:19 | Urology Progress Note ---
Date of Service December 29, 2019 Assessment & Plan (1) Ureterolithiasis: Left ureteral calculus Plan for cystoscopy, left ureteroscopy, laser lithotripsy and stent placement today Risks, benefits, alternatives discussedconsent is on the chart Subjective Remains mildly symptomatic from the left ureteral calculus She has not yet seen a stone pass She is n.p.o. and prepared for surgery today to treat the stone definitively Physical Exam Constitutional: well developed and well nourished Neck: neck nontender Respiratory: normal respiratory effort; no respiratory distress and does not use accessory muscles Cardiovascular: Rate/Rhythm: regular rate Vessels: radial pulses present Extremities: no edema Gastrointestinal (Abdomen): Inspection/Auscultation: abdomen normal to inspection Percussion/Palpation: abdomen soft; abdomen nontender and no guarding Musculoskeletal: Head/Neck/Chest: normocephalic and head atraumatic Extremities: extremities normal to inspection Skin: no rashes and no lesions Trauma: no evidence of skin trauma Neurologic: awake; not obtunded Speech / Cognition: normal speech Motor/Sensory: no tremor Psychiatric: Orientation: alert and oriented x 3 Lymphatic: no lymphadenopathy Results & Data Vital Signs (Past 12 Hours) Vital Signs Temp Pulse Resp BP BP Pulse Ox 12/29/19 07:32 37.4 C 72 16 119/71 94 12/28/19 23:50 94 12/28/19 23:47 37.8 C H 73 18 125/70 86 L PG Care Time/CCT Total # of Minutes Spent Total Time Spent with Patient: Total time spent is greater than 50% in coordination of care (as documented) at patient's floor/unit and/or counseling patient: Coding Level of Care Code 69313 Subseq Hosp Care Lvl 2 Diagnoses Ureterolithiasis N20.1
[2019-12-29 11:02] LABS: Appearance Urine Clear (Clear); Bilirubin Urine Negative (Negative); Blood Urine Negative (Negative); Color Urine Yellow; Glucose Urine UA Negative (Negative); Ketones Urine Negative (Negative); Leukocyte Esterase Urine Negative (Negative); Nitrite Urine Negative (Negative); Protein Urine Negative (Negative); Specific Gravity Urine 1.011 (1.000-1.030); Urobilinogen Urine Negative (Negative)
[2019-12-29] MEDS ORDERED: MIDAZOLAM HCL 1 MG/ML 2ML VIAL ONE (11:04)
[2019-12-29] MEDS ORDERED: fentaNYL citrate 100 MCG/2 ML VIAL ONE (11:04)
[2019-12-29 11:19] LABS: Creatinine Urine Random 37.9 mg/dl
[2019-12-29] MEDS ORDERED: IOTHALAMATE MEGLUMINE II 17.2% 250 ML VIAL ONE (11:45)
--- NOTE | 2019-12-29 11:45 | Anesthesiology Consultation ---
Date of Service December 29, 2019 Assessment & Plan ASA ASA2 Proposed Anesthesia Anesthesia Type: General Risk / Benefits Reviewed With: PT / POA / Parent / Guardian, Accepts Plan and Informed Consent Obtained History Surgery Operation Date: 12/29/19 10:05 Proposed Procedures p Cystoscopy, Left Ureteroscopy, Retrograde Pyelogram, Possible Ureteral Dilation, Laser Lithotripsy, Insertion of Stent - Angus Garza MD Height/Weight Height: 5 ft 1 in Weight: 77.7 kg Allergies Allergy/AdvReac Type Severity Reaction Status Date / Time Sulfa (Sulfonamide Allergy Hives Unverified 12/27/19 16:15 Antibiotics) Medications Home Medications Medication Instructions Recorded Confirmed Last Taken rosuvastatin [Crestor] 20 mg PO QPM 11/26/18 12/27/19 12/27/19 cholecalciferol (vitamin D3) 25 mcg PO DAILY 12/26/19 12/27/19 12/27/19 hydrocodone-acetaminophen [[place]] 1 tab PO Q6H PRN #10 tab 12/27/19 12/27/19 12/27/19 ondansetron HCl [Zofran] 4 mg PO Q8H PRN #10 tab 12/27/19 12/27/19 12/27/19 tamsulosin [Flomax] 0.4 mg PO DAILY #10 cap 12/27/19 12/27/19 12/27/19 Active Medications Generic Name Dose Route Start Last Admin Trade Name Freq PRN Reason Stop Dose Admin Hydromorphone HCl 0.5 mg 12/27/19 19:28 12/29/19 06:46 Dilaudid IV 01/10/20 19:25 0.5 mg Q4H PRN Administration Pain Promethazine HCl 12.5 mg/ 50.5 mls @ 202 mls/hr 12/27/19 19:26 12/27/19 21:31 Sodium Chloride IV 01/26/20 19:25 Infused Q6H PRN Infusion Nausea And Vomiting Ceftriaxone Sodium 1,000 mg/ 50 mls @ 100 mls/hr 12/28/19 14:00 12/28/19 14:53 Dextrose IV 01/02/20 13:59 Infused Q24H CANDIDO Infusion Protocol Lactated Ringer's 1,000 mls @ 80 mls/hr 12/28/19 19:45 12/29/19 08:42 Lr IV 01/27/20 19:44 80 mls/hr .[id number] CANDIDO Administration Magnesium Hydroxide 30 ml 12/27/19 17:54 12/28/19 22:36 Milk Of Magnesia PO 01/26/20 17:53 30 ml Q6H PRN Administration Constipation Rosuvastatin Calcium 20 mg 12/27/19 21:00 12/28/19 20:48 Crestor PO 01/26/20 20:59 20 mg QPM CANDIDO Administration Tamsulosin HCl 0.4 mg 12/27/19 21:00 12/28/19 20:48 Flomax PO 01/26/20 20:59 0.4 mg HS CANDIDO Administration Vitamin D 1,000 units 12/28/19 09:00 12/29/19 08:42 Vitamin D3 PO 01/27/20 08:59 Not Given DAILY CANDIDO NPO Date Last Intake of Fluids: 12/28/19 Time Last Intake of Fluids: 23:59 Date Last Intake of Solids: 12/28/19 Time Last Intake of Solids: 23:59 Past Medical History Medical History History of kidney stones Hyperlipidemia Seasonal allergies Spasmodic dysphonia REGULAR INJECTIONS FOR, LAST INJECTION: SEPTEMBER 2018 Exercise / Class Metabolic Activity II 4-5 Yardwork/Stairs/Walk up hill Past Surgical History Surgical History History of appendectomy History of arthroscopy of left knee History of bunionectomy LEFT History of colonoscopy History of tumor IN BACK/BENIGN History of wisdom tooth extraction Past Anesthesia History No Hx of Anesthesia Complications and No Family Hx of Anesthesia Complications History of PONV No Hx of PONV and No Hx of Motion Sickness Social History Smoking Status: Never smoker tobacco type: cigarettes Hx Alcohol Use: Yes Alcohol type: wine and hard liquor alcohol intake frequency: a few times a week Hx Substance Use: No substance use type: does not use Review of Systems denies fever/cough/ colds/ chest pain/ SOB/ PRUDENCIO Constitutional: no fever and no chills Respiratory: no cough and no dyspnea denies PRUDENCIO Cardiovascular: no chest pain and no dyspnea on exertion Physical Exam Vital Signs Last Vital Signs Temp 37.4 C 12/29/19 07:32 Pulse 72 12/29/19 07:32 Resp 16 12/29/19 07:32 BP 119/71 12/29/19 07:32 Pulse Ox 94 12/29/19 11:33 ENMT Mouth: no TMJ abnormality and no dentition abnormality Thyromental Distance: > or= 3.5 Finger Breadths Mallampati Class: II Neck neck extension not limited Respiratory normal respiratory effort; no respiratory distress Auscultation: lungs clear to auscultation bilaterally Cardiovascular Rate/Rhythm: regular rate and regular rhythm Neurologic moves all extremities Psychiatric Orientation: alert and oriented x 3 Testing Laboratory Results 12/29/19 06:44 12/29/19 06:44 Urine Color Yellow 12/29/19 10:42 Urine Appearance Clear (Clear) 12/29/19 10:42 Urine pH 8.0 (4.5-7.5) H 12/29/19 10:42 Ur Specific Nolan 1.011 (1.000-1.030) 12/29/19 10:42 Urine Protein Negative (Negative) 12/29/19 10:42 Urine Glucose (UA) Negative (Negative) 12/29/19 10:42 Urine Ketones Negative (Negative) 12/29/19 10:42 Urine Nitrite Negative (Negative) 12/29/19 10:42 Ur Leukocyte Esterase Negative (Negative) 12/29/19 10:42 Urine WBC (Auto) 1-5 /hpf (0-5) 12/27/19 17:28 Urine RBC (Auto) 5-10 /hpf (0-4) H 12/27/19 17:28 U Hyaline Cast (Auto) 1-5 /lpf (0-5) 12/27/19 17:28 U Epithel Cells (Auto) 10-20 /lpf (0-5) H 12/27/19 17:28 Urine Bacteria (Auto) Negative (Negative) 12/27/19 17:28
[2019-12-29] MEDS ORDERED: ONDANSETRON INJ 2 MG/ML 2 ML VIAL IV PRN (12:07)
[2019-12-29] MEDS ORDERED: ePHEDrine sulfate 50 MG/ML AMP IV PRN (12:07)
[2019-12-29] MEDS ORDERED: fentaNYL citrate 100 MCG/2 ML VIAL IV PRN (12:07)
[2019-12-29] MEDS ORDERED: HYDROmorphone INJ 2 MG/ML SYR/VIAL IV PRN (12:07)
[2019-12-29] MEDS ORDERED: ATROPINE SULFATE 0.1 MG/ML 10ML SYR IV PRN (12:07)
[2019-12-29] MEDS ORDERED: ONDANSETRON INJ 2 MG/ML 2 ML VIAL ONE (12:49)
[2019-12-29] MEDS ORDERED: DEXAMETHASONE SOD INJ 4 MG/ML VIAL ONE (12:49)
[2019-12-29] MEDS ORDERED: PROPOFOL IV EMULSION 10 MG/ML 20 ML VIAL IV ONE (12:49)
[2019-12-29] MEDS ORDERED: LIDOCAINE HCL 2% 2 ML VIAL/AMP(20MG/ML) INFIL ONE (12:49)
--- NOTE | 2019-12-29 13:16 | Operative Report ---
PG Post Operative Report Pre & Post Diagnosis Operation Date: 12/29/19 10:05 <No data on this case meets the specified criteria> I identified the patient and participated in the time-out.: Yes Procedure Operation Date: 12/29/19 10:05 Actual Procedures p Cystoscopy, Left Ureteroscopy, Laser Lithotripsy, Insertion of Left Ureteral Stent - Angus Garza MD Surgeon Timothy Garza MD Chief Underwriter none Estimated Blood Loss 0 Findings Consistent with Post-Op Diagnosis Specimens stone for chemical analysis Description of Procedure The patient was identified in the preoperative holding area, appropriate informed consents were reviewed and completed and the patient was transferred to the operative suite. Upon arrival, appropriate antibiotics and anesthesia were administered and the patient was placed in dorsal lithotomy position and prepped and draped in sterile fashion. To begin the case I passed a 22 Georgian cystoscope with 30 degree lens per urethra. Of note, she has a notable rectocele and cystocele as well as a slight urethral caruncle. Inspection of the bladder revealed healthy-appearing mucosa without any stones evident within the bladder lumen itself. Ureteral orifices were in orthotopic position. I turned my attention to the left ureteral orifice and cannulated with a 5 Georgian open-ended catheter and sensor wire. The wire a dvanced to the kidney without difficulty. I then guided a semirigid ureteroscope into the distal left ureter. I encountered a stone approximately 1 cm above the UVJ behind a tight band of tissue. I was able to pass the scope through this band of tissue dilating it. I then passed a laser fiber and I fragmented the stone entirely. I was able to irrigate all the stone debris out of the ureter. Several pieces were collected and passed off the table as a specimen for chemical analysis. I did advance her ureteroscope to the maximal extent possible identifying no other stones within the slightly dilated proximal ureter. Mucosa appeared very healthy. I placed a 6 Georgian by 24 cm double-J stent seeing a good curl in the kidney as well as the bladder, a string was left attached to the distal aspect of the stent. The case was subsequently concluded after I emptied the bladder. She was reversed of anesthesia and taken to the PACU in stable condition. There were no complications. I attest to the content of the Intraoperative Record and any orders documented therein. Any exceptions are noted below.
--- NOTE | 2019-12-29 13:18 | Fluoroscopy Report ---
FL retrograde includes kub CLINICAL HISTORY: LT SIDE RETROGRADE, LITHOTRIPSY COMPARISON STUDY: None. FLUOROSCOPY TIME: 3 seconds. Single fluoroscopic spot images of the abdomen.. FINDINGS: A left ureteral stent is noted. Only the proximal portion of the stent is identified and ap pears in good position. IMPRESSION: Fluoroscopy provided for left ureteral stent placement. ACT 112: Negative or not required by law. Electronically signed by: Piyush Klein M.D. 12/29/2019 1:17 PM
--- NOTE | 2019-12-29 13:56 | Anesthesiology Progress Note ---
Date of Service December 29, 2019 Anesthesia Post Procedure Vital Signs Vital Signs: Temp Pulse Pulse Resp BP BP Pulse Ox 12/29/19 13:50 80 11 L 139/86 93 12/29/19 13:41 36.4 C L 84 15 138/81 94 12/29/19 11:48 37.1 C 84 20 158/84 H 94 12/29/19 11:33 94 12/29/19 07:32 37.4 C 72 16 119/71 94 12/28/19 23:50 94 12/28/19 23:47 37.8 C H 73 18 125/70 86 L Pain Intensity Left Flank: Pain Intensity: 0 Transfer of Care Handoff Completed per policy Notes Mental Status: alert / awake / arousable and participated in evaluation Patient Amnestic to Procedure: Yes Nausea / Vomiting: adequately controlled Pain: adequately controlled Airway Patency, RR, SpO2: stable & adequate BP & HR: stable & adequate Hydration State: stable & adequate Anesthetic Complications: no major complications apparent and Pt Satisfied with anesthetic care
[2019-12-29] MEDS: cefTRIAXone SODIUM 1,000 MG in DEXTROSE 5% 50 ML IV SCH (14:30)
--- NOTE | 2019-12-29 16:50 | Hospitalist Progress Note ---
Date of Service December 29, 2019 Assessment & Plan Admission and Anticipated Discharge Date Admission Date: December 27, 2019 69 yo female presenting with left flank pain found to have Ureterolithiasis s/p cystoscopy and left ureteroscopy and laser lithotripsy - renal ultrasound w/ moderate left hydronephrosis w/o ureteral jet - CT abdomen/pelvis: 5 mm distal left calculus w/ bilateral nephrolithiasis - nl WBC, UA w/ 2+blood, trace LCE, RBC 5-10, 10-20 epithelial cells - asymptomatic - pain management with acetaminophen and Dilaudid PRN - Urology consulted s/p lithotripsy Elevated Cr., likely due to obstructive uropathy given continued elevation prior to urologic procedure. If the Cr. does not downtrend we will need to have a continued workup. - FENA almost 5%, BUN/Cr. <20 - will follow up Cr. with AM BMP Acute left flank pain - secondary to above Hydronephrosis - as above DVT prophylaxis - Hold off chemical prophylaxis for cystoscopy - SCDs Code: full Diet: regular Supervising Physician Co-Signing Physician Notes I personally examined the patient and verified all burnett points of history and exam, discussed case, and agree with decision making with Dr Rose. feeling good pain controlled. voiding large amounts since cysto. vitals noted nad heent nc at mmm breathing unlabored no accessory muscles good effort skin no rashes no pallor or icterus ureterolithiasis w SAKSHI - doing better with stone - now post cysto, laser lithotripsy, stenting. SAKSHI a little odd - typically would be prerenal/dry from secondary sx of stone - but worsened despite IVF. UA bland, FeNa~5% so higher than would typically expect with ATN (and no real reason for intrinsic renal either) -- then with high FeNa and fairly large spontaneous diuresis post stenting - while odd to have SAKSHI from unilateral stone - quite possible that this was the case. BMP in AM. dysphonia - outpt for botox scheduled in [facility] next week otherwise as above Subjective Doing well this morning. She did not pass her stone overnight and was prepared for the procedure today. She did not have any pain without urination. She did have some abdominal fullness. 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, denies shortness of breath neuro: denies headache GI: denies nausea and vomiting : denies increased frequency, urgency or pain Physical Exam Constitutional: well developed and well nourished; no acute distress Eyes: PERRL, conjunctivae normal, anicteric sclerae ENMT: external ear and nose normal, oropharynx normal Neck: normal visual inspection Respiratory: normal respiratory effort, lungs clear to auscultation no cough Cardiovascular: RRR, no murmur, no edema Gastrointestinal (Abdomen): Inspection/Auscultation: normal bowel sounds Percussion/Palpation: abdomen soft Skin: no rashes, warm and dry Psychiatric: A+Ox3, euthymic affect Results & Data Results & Data ([facility]) Vital Signs (Past 12 Hours) Vital Signs Temp Pulse Pulse Resp BP BP Pulse Ox 12/29/19 16:20 37.1 C 86 18 116/71 93 12/29/19 15:24 36.8 C 92 H 18 144/79 H 91 12/29/19 14:55 36.9 C 85 16 139/80 93 12/29/19 14:25 37.1 C 89 16 136/84 94 12/29/19 14:10 36.4 C L 85 16 142/82 H 93 12/29/19 14:00 82 17 149/81 H 94 12/29/19 13:50 80 11 L 139/86 93 12/29/19 13:41 36.4 C L 84 15 138/81 94 12/29/19 11:48 37.1 C 84 20 158/84 H 94 12/29/19 11:33 94 12/29/19 07:32 37.4 C 72 16 119/71 94 Resident Activity Tracking Resident Involvement: Resident Care Provided Care Provided: Adult Hospital Medicine
--- NOTE | 2019-12-29 19:39 | Billing Data ---
Date of Service December 29, 2019 Coding Level of Care Code 73235 Subseq Hosp Care Lvl 3
[2019-12-29] MEDS: TAMSULOSIN HCL 0.4 MG CAP PO SCH (20:17)
[2019-12-29] MEDS: ROSUVASTATIN CALCIUM 20 MG TAB PO SCH (20:17)
[2019-12-30] MEDS: LACTATED RINGER'S 1,000 ML IV SCH (02:27)
[2019-12-30 06:00] LABS: BUN Creatinine Ratio 21.7 (10-20); Calcium 8.6 mg/dl (8.5-10.1); Creatinine Clr Calc Pharmacy 65.2 ml/min; Est GFR (African American) 89.8; Est GFR (Non-African American) 77.5; Potassium 4.3 mmol/L (3.5-5.1)
[2019-12-30] MEDS: CHOLECALCIFEROL 1,000 UNITS 25 MCG TAB PO SCH (08:24)
--- NOTE | 2019-12-30 17:07 | Discharge Summary ---
Date of Service December 30, 2019 Admission HPI Per Admitting Provider Angely Pena is a 69 year old female who presents to the ER with recurrent left flank and left lower quadrant abdominal pain. Her symptoms started yesterday at around 8pm. Severe 10/10 pain initially and not able to get comfortable. She came to the ER and subsequent CT confirmed a distal 5mm stone. She was treated with pain relief, tamsulosin and IV fluids in the ER and discharged home with. She does note chills since discharge but no objective fevers, dysuria. The pain has not resolved since discharge despite using the [place] and subsequently became more painful this morning so she decided to return to the ER. On return to the ER her pain was 10/10 severity. Currently after 2L IV bolus, 1mg Dilaudid, 4mg Morphine, 15mg Toradol and 1g Acetaminophen her pain is 6/10. Aching pain on left flank and LLQ abdomen, unable to get comfortable, no radiation. KUB XR suggestive of 5mm stone present in distal left ureteral but overlying gas therefore suboptimal film. Renal US showed persistant left-sided hydroureteronephrosis. She has a known history of mainly calcium oxalate stones. Admission Exam Per Admitting Provider Constitutional: WD/WN, vitals as above + acute distress (left flank pain) Eyes: PERRL, conjunctivae normal, anicteric sclerae ENMT: external ear and nose normal, oropharynx normal Neck: trachea midline, no thyromegaly Respiratory: normal respiratory effort, lungs clear to auscultation Cardiovascular: RRR, no murmur, no edema Gastrointestinal (Abdomen): Inspection/Auscultation: abdomen normal to inspection and normal bowel sounds; abdomen not distended Percussion/Palpation: + abdomen tender (LLQ), + guarding and abdomen soft; abdomen not rigid Musculoskeletal: no cyanosis or clubbing, extremities motor strength 5/5 Skin: no rashes, warm and dry Neurologic: moves all extremities and awake; no focal motor deficits and not confused Motor/Sensory: no tremor and no pronator drift Psychiatric: A+Ox3, euthymic affect Genitourinary: + CVA tenderness (Left) Lymphatic: no cervical or axillary lymphadenopathy Principal Diagnosis ureterolithiasis elevated cr. Discharge Exam Constitutional well developed and well nourished; no acute distress Eyes PERRL, conjunctivae normal, anicteric sclerae ENMT external ear and nose normal, oropharynx normal Neck normal visual inspection Respiratory normal respiratory effort, lungs clear to auscultation no cough Cardiovascular RRR, no murmur, no edema Gastrointestinal (Abdomen) Inspection/Auscultation: normal bowel sounds Percussion/Palpation: abdomen soft Skin no rashes, warm and dry Psychiatric A+Ox3, euthymic affect Discharge Data Allergies Allergy/AdvReac Type Severity Reaction Status Date / Time Sulfa (Sulfonamide Allergy Hives Unverified 12/30/19 10:15 Antibiotics) Consultations 12/27/19 17:52 ED Decision to Admit Stat 12/27/19 17:54 Consult Urology Routine Procedures Performed Operation Date: 12/29/19 10:05 Actual Procedures p Laser Lithotripsy, - Angus Garza MD s Cystoscopy, Left Ureteroscopy, - Angus Garaz MD s Insertion of Left Ureteral Stent - Angus Garza MD Ordered Studies 12/27/19 15:31 US renal/blad retro comp Stat 12/29/19 10:05 FL retrograde includes kub Routine Hospital Course (1) Ureterolithiasis: 69 yo female presenting with left flank pain found to have Ureterolithiasis s/p cystoscopy and left ureteroscopy and laser lithotripsy - renal ultrasound w/ moderate left hydronephrosis w/o ureteral jet - CT abdomen/pelvis: 5 mm distal left calculus w/ bilateral nephrolithiasis - nl WBC, UA w/ 2+blood, trace LCE, RBC 5-10, 10-20 epithelial cells - asymptomatic - pain management with acetaminophen and Dilaudid PRN - Urology consulted now s/p lithotripsy w/ f/u on day of discharge Elevated Cr., likely due to obstructive uropathy given continued elevation prior to urologic procedure. - FENA almost 5%, BUN/Cr. <20 - f/u Cr. w/ resolution of elevation of cr. Acute left flank pain - secondary to above Hydronephrosis - as above Dysphonia - plan for outpatient procedure, MAR printed off to allow patient to ensure (2) Hydronephrosis: (3) Calculus of distal left ureter: (4) Intractable abdominal pain: (5) DVT prophylaxis: (6) Nausea & vomiting: Total Time Total Time Spent Total Time Spent (In Minutes): <30 Discharge Plan Discharge Items Patient Disposition: Home - Self-Care Reason For Visit: NEPHROLITHIASIS WITH HYDRONEPHROSIS Discharge Diagnosis: resolved nephrolithiasis Activity: Per Instructions section Non-emergency contact: Primary Care Provider Call non-emergency contact if: your symptoms worsen and your temperature is above 101 Follow-up/Referrals: Parrish Gregg Jr, DO [Primary Care Provider] - (Please call your primary care office at [phone] to see if you need to make a follow up appointment. Thank you.) Diet: Regular Addtl Attending Provider Instructions: Please come to Dr. Garza's office, tomorrow, 12/30/19 at 10AM to have your stent removed (the nurses will use the string taped to your thigh to remove the stent). His office is located at [address] [place] [address]. Drink plenty of water: Drinking extra water dilutes the substances in urine that lead to stones. Strive to drink enough fluids to pass 2 liters of urine a day, which is roughly eight standard 8-ounce cups. It may help to include some citrus beverages, like lemonade and orange juice. The citrate in these beverages helps block stone formation. Get the calcium you need: Getting too little calcium in your diet can cause oxalate levels to rise and cause kidney stones. To prevent this, make sure to take in an amount of calcium appropriate to your age. Ideally, obtain calcium from foods, since some studies have linked taking calcium supplements to kidney stones. Reduce sodium: A high-sodium diet can trigger kidney stones because it increases the amount of calcium in your urine. So a low-sodium diet is recommended for the stone prone. Current guidelines suggest limiting total daily sodium intake to 2,300 mg. If sodium has contributed to kidney stones in the past, try to reduce your daily intake to 1,500 mg. This will also be good for your blood pressure and heart. Pending Studies at Discharge: Yes Studies:: kidney stone pathology Stand-Alone Forms: [facility] [employer], Smoking Cessation Medications and DC Order Prescriptions: Continued cholecalciferol (vitamin D3) 25 mcg (1,000 unit) Tablet 25 mcg PO DAILY RF: 0 tamsulosin [Flomax] 0.4 mg capsule 0.4 mg PO DAILY Qty: 10 RF: 0 hydrocodone-acetaminophen [[place]] 5-325 mg tablet 1 tab PO Q6H PRN (Reason: pain) Qty: 10 RF: 0 ondansetron HCl [Zofran] 4 mg tablet 4 mg PO Q8H PRN (Reason: nausea and vomiting) Qty: 10 RF: 0 rosuvastatin [Crestor] 20 mg Tablet 20 mg PO QPM RF: 0 Discharge Orders: Discharge Order (Routine); Ordered 12/30/19 Ordered By: Kings Thomas/Other Patient Handouts: Kidney Stones Prevent Admission Data Admit Date/Time: 12/27/19 17:57 Attending Provider: Jerardo Henning Admit Provider: Geovanny Schneider Primary Care Provider: Parrish Gregg Jr Other Providers: Geovanny Schneider ; Carl Malhotra Other Interventions: Discharge Summary Assessment (RN) Last Done: 12/30/19 08:35 DC Date/Time DO NOT enter until pt leaves facility: 12/30/19 09:41 Supervising Physician Co-Signing Physician Notes I personally examined the patient and verified all burnett points of history and exam, discussed case, and agree with decision making with Dr Rose. feeling good ready to go home. vitals noted nad heent nc at mmm breathing unlabored no accessory muscles good effort skin no rashes no pallor or icterus ureterolithiasis w SAKSHI - doing better with stone - now post cysto, laser lithotripsy, stenting. SAKSHI a little odd - typically would be prerenal/dry from secondary sx of stone - but worsened despite IVF. UA was bland, FeNa~5% so higher than would typically expect with ATN (and no real reason for intrinsic renal either) -- then with high FeNa and fairly large spontaneous diuresis post stenting - while odd to have SAKSHI from unilateral stone - quite possible that this was the case. especially since she completely resolved after cysto/stenting and creatinine is now normal. stable for home. dysphonia - outpt for botox scheduled in [facility] next week otherwise as above Resident Activity Tracking Resident Involvement: Resident Care Provided Care Provided: Adult [facility] Medicine
--- NOTE | 2019-12-30 17:28 | Billing Data ---
Date of Service December 30, 2019 Coding Level of Care Code D/C Day Management <30 mins
[2020-01-05 03:24] LABS: Component 2 DNR; Source URETERAL STONE
== END 2019-12-30 09:41 | disposition home or self-care (01) | DRG 670 ==
LOC: ED 14:53 → 3N 17:57 → SUATTDRO 17:57 → 3N 18:47